=== PATIENT | male | born 1965 | race Caucasian/White ===

== ENCOUNTER 2023-08-02 08:00 | Inpatient (IN) | payer OTHER ==
[2023-08-04 08:40] VITALS: BMI 29.0
[2023-08-05] MEDS ORDERED: LIDOCAINE 1%/EPI 1:100000 (20 ML MULTI DOSE VIAL) ONE ×2 (07:04→10:14)
[2023-08-05] MEDS ORDERED: THROMBIN (BOVINE) 5,000 UNIT VIAL TP ONE ×4 (07:04→11:03)
[2023-08-05] MEDS ORDERED: BACITRACIN ZINC 15 GM TUBE TOPICAL OINTMENT ONE ×2 (07:26→07:27)
[2023-08-05] MEDS ORDERED: ACETAMINOPHEN 500 MG TABLET (FP) PO ONE (07:30)
[2023-08-05] MEDS ORDERED: GABAPENTIN 300 MG CAPSULE PO ONE (07:30)
[2023-08-05] MEDS ORDERED: PROPOFOL 20 ML ONE ×2 (07:40→08:41)
[2023-08-05] MEDS ORDERED: FENTANYL CITRATE/PF 50 MCG/ML VIAL ONE ×8 (07:40→13:52)
[2023-08-05] MEDS ORDERED: MIDAZOLAM HCL 2 MG/2 ML SINGLE DOSE VIAL ONE (07:41)
[2023-08-05] MEDS ORDERED: ROCURONIUM BROMIDE 50 MG/5 ML SYRINGE ONE ×2 (07:41→09:11)
[2023-08-05] MEDS ORDERED: VANCOMYCIN 1,000 MG VIAL (RESTRICTED TO ID ONLY) ONE (07:43)
[2023-08-05] MEDS ORDERED: ceFAZolin SODIUM 1 GM VIAL ONE ×2 (07:43→12:17)
[2023-08-05] MEDS ORDERED: TRANEXAMIC ACID 1000 MG/10 ML VIAL ONE (07:43)
[2023-08-05] MEDS ORDERED: ONDANSETRON 4 MG/2 ML VIAL IVPUSH PRN ×3 (08:24→13:22)
[2023-08-05] MEDS ORDERED: DEXAMETHASONE SOD PHOSPHATE 4 MG/1 ML VIAL IVPUSH PRN (08:24)
[2023-08-05] MEDS ORDERED: PROMETHAZINE HCL 25 MG/1 ML VIAL IVPB PRN ×2 (08:24)
[2023-08-05] MEDS ORDERED: LACTATED RINGERS SOLUTION 1,000 ML IV SCH (08:30)
[2023-08-05] MEDS ORDERED: LIDOCAINE HCL/PF 2% SDV 5ML VIAL ONE (08:34)
[2023-08-05] MEDS ORDERED: ceFAZolin SODIUM 1 GM VIAL IVPB ONE ×2 (08:36→12:16)
[2023-08-05] MEDS ORDERED: VANCOMYCIN 1 GM in D5W (PRE-DOCKED) 1,000 MG/250 ML (RESTRICTED TO ID ONLY IVPB ONE (08:40)
[2023-08-05] MEDS ORDERED: ONDANSETRON 4 MG/2 ML VIAL ONE (08:57)
[2023-08-05] MEDS ORDERED: DEXAMETHASONE SOD PHOSPHATE 4 MG/1 ML VIAL ONE (08:57)
[2023-08-05] MEDS ORDERED: LIDOCAINE 1%/EPI 1:100000 (20 ML MULTI DOSE VIAL) IJ ONE ×2 (08:59→11:03)
[2023-08-05] MEDS ORDERED: GENTAMICIN SO4 80 MG/2 ML VIAL IVPB ONE ×2 (09:18→10:00)
[2023-08-05] MEDS ORDERED: HYDROGEN PEROXIDE 473 ML PO ONE ×2 (09:19→10:00)
[2023-08-05] MEDS ORDERED: BUPIVACAINE HCL/PF 0.5% (5MG/ML) 10 ML VIAL IJ ONE (10:50)
[2023-08-05] MEDS ORDERED: BUPIVACAINE LIPOSOME/PF (EXPAREL) 266 MG/20 ML VIAL NR ONE (10:50)
[2023-08-05] MEDS ORDERED: ACETAMINOPHEN INJECTION 100 ML IVPB ONE (11:09)
[2023-08-05] MEDS ORDERED: SUGAMMADEX SODIUM 200 MG/2 ML VIAL ONE (12:51)
[2023-08-05] MEDS ORDERED: METOPROLOL TARTRATE 5 MG/5 ML VIAL ONE (12:58)
[2023-08-05] MEDS ORDERED: HYDROmorphone *PCA* 10MG/50ML DISP.SYRIN ONE (13:12)
[2023-08-05] MEDS ORDERED: oxyCODONE HCL 5 MG TABLET PO PRN ×2 (13:22)
[2023-08-05] MEDS ORDERED: morphine CARPU-JECT 4 MG/1 ML DISP.SYRIN IVPUSH PRN (13:22)
[2023-08-05] MEDS ORDERED: diphenhydrAMINE HCL 25 MG CAPSULE (FP) PO PRN (13:22)
[2023-08-05] MEDS: HYDROmorphone *PCA* 10MG/50ML DISP.SYRIN PCA SCH (13:24)
[2023-08-05] MEDS: DOCUSATE SODIUM 100 MG CAPSULE (FP) PO SCH ×2 (14:00→22:21)
[2023-08-05] MEDS: LACTATED RINGERS SOLUTION 1,000 ML/1,000 ML INFUS.BAG IV SCH (14:30)
[2023-08-05] MEDS: CEFAZOLIN 1 GM in DEXTROSE 5%-WATER - 50 ML IVPB SCH (18:38)
[2023-08-05] MEDS: HEPARIN NA (PORCINE) 5,000 UNITS/ML 1ML VIAL SQ SCH (22:19)
[2023-08-06] MEDS: HYDROmorphone *PCA* 10MG/50ML DISP.SYRIN PCA SCH ×3 (00:41→20:57)
[2023-08-06] MEDS: CEFAZOLIN 1 GM in DEXTROSE 5%-WATER - 50 ML IVPB SCH ×2 (02:08→09:54)
[2023-08-06] MEDS ORDERED: BENZOCAINE/MENTHOL (CHLORASEPTIC ) LOZENGE MM PRN (05:41)
[2023-08-06] MEDS: HEPARIN NA (PORCINE) 5,000 UNITS/ML 1ML VIAL SQ SCH ×3 (07:04→22:15)
[2023-08-06] MEDS: DOCUSATE SODIUM 100 MG CAPSULE (FP) PO SCH ×3 (07:06→22:15)
[2023-08-06 08:33] LABS: HEMATOCRIT 36.3 % (35.4-49); HEMOGLOBIN 12.6 GM/dL (11.7-16.9); MCH 28.6 pg (25.7-33.7); MCHC 34.6 g/dl (32.0-35.9); MEAN CELL VOLUME 82.7 fl (80-96); MEAN PLT VOLUME 7.4 fl (7.5-11.1); PLATELET COUNT 164 10^3/uL (134-434); RDW 14.3 % (11.9-15.9); WHITE BLOOD COUNT 11.1 K/mm3 (4.0-10.0)
[2023-08-06 08:50] LABS: POTASSIUM 3.6 mmol/L (3.5-5.1)
[2023-08-06 09:02] LABS: CALCIUM 7.7 mg/dL (8.5-10.1)
[2023-08-06 09:03] LABS: MAGNESIUM 1.7 mg/dL (1.8-2.4)
[2023-08-06 09:05] LABS: CREATININE 0.7 mg/dL (0.55-1.3); PHOSPHOROUS 2.9 mg/dL (2.5-4.9)
[2023-08-06] MEDS ORDERED: ceFAZolin SODIUM 1 GM VIAL ONE (09:28)
[2023-08-06] MEDS: FERROUS SO4 325 MG TABLET (FP) PO SCH (09:30)
[2023-08-06] MEDS: FOLIC ACID 1 MG TABLET (FP) PO SCH (09:30)
[2023-08-06] MEDS: MAGNESIUM OXIDE 400 MG TABLET (FP) PO SCH ×2 (10:53→22:14)
[2023-08-06] MEDS: LACTATED RINGERS SOLUTION 1,000 ML/1,000 ML INFUS.BAG IV SCH (14:41)
[2023-08-07] MEDS: DOCUSATE SODIUM 100 MG CAPSULE (FP) PO SCH ×3 (06:31→21:57)
[2023-08-07] MEDS: HEPARIN NA (PORCINE) 5,000 UNITS/ML 1ML VIAL SQ SCH ×3 (06:31→21:57)
[2023-08-07 08:12] LABS: BASO % 0.4 % (0-2.0); EOS % 0.4 % (0-4.5); HEMATOCRIT 36.1 % (35.4-49); HEMOGLOBIN 12.3 GM/dL (11.7-16.9); LYMPH % 8.9 % (8-40); MCH 28.3 pg (25.7-33.7); MEAN CELL VOLUME 83.2 fl (80-96); MEAN PLT VOLUME 7.5 fl (7.5-11.1); MONO % 9.7 % (3.8-10.2); NEUT % 80.6 % (42.8-82.8); PLATELET COUNT 151 10^3/uL (134-434); RBC 4.34 M/mm3 (4.00-5.60); RDW 14.2 % (11.9-15.9); WHITE BLOOD COUNT 9.5 K/mm3 (4.0-10.0)
[2023-08-07] MEDS: FERROUS SO4 325 MG TABLET (FP) PO SCH ×2 (08:39→10:04)
[2023-08-07 08:58] LABS: MAGNESIUM 2.2 mg/dL (1.8-2.4)
[2023-08-07 08:59] LABS: BLOOD UREA NITROGEN 6.8 mg/dL (7-18)
[2023-08-07 09:01] LABS: CREATININE 0.6 mg/dL (0.55-1.3)
[2023-08-07 09:03] LABS: TOT PROT 5.4 g/dl (6.4-8.2)
[2023-08-07] MEDS ORDERED: BENZOCAINE/MENTH/CETYLPYRD CL 1 EACH LOZENGE MM PRN (09:24)
[2023-08-07] MEDS: FOLIC ACID 1 MG TABLET (FP) PO SCH (10:05)
[2023-08-07] MEDS: HYDROmorphone *PCA* 10MG/50ML DISP.SYRIN PCA SCH (10:06)
[2023-08-07] MEDS: FERROUS SO4 300 MG/5 ML ORAL SOLN UNIT DOSE CUPS PO SCH (10:07)
[2023-08-07] MEDS ORDERED: PHENOL 177 ML SPRAY BOTTLE MM PRN (10:08)
[2023-08-07] MEDS: ACETAMINOPHEN 1000 MG/100 ML BAG IVPB PRN (15:47)
[2023-08-07] MEDS: DEXTROSE 5%-0.45% SALINE 1,000 ML IV SCH (15:52)
[2023-08-07 23:19] VITALS: RESP 18
[2023-08-08] MEDS: DEXTROSE 5%-0.45% SALINE 1,000 ML IV SCH (04:34)
[2023-08-08] MEDS: ACETAMINOPHEN 1000 MG/100 ML BAG IVPB PRN (04:35)
[2023-08-08] MEDS: DOCUSATE SODIUM 100 MG CAPSULE (FP) PO SCH (06:04)
[2023-08-08] MEDS: HEPARIN NA (PORCINE) 5,000 UNITS/ML 1ML VIAL SQ SCH (06:05)
[2023-08-08] MEDS ORDERED: oxyCODONE HCL 5 MG TABLET PO PRN ×2 (07:48)
[2023-08-08] MEDS ORDERED: DEXAMETHASONE SOD PHOSPHATE 10 MG/1 ML VIAL IVPUSH ONE (09:00)
[2023-08-08] MEDS ORDERED: PANTOPRAZOLE 40 MG TABLET PO SCH (10:00)
[2023-08-08] MEDS ORDERED: POLYETHYLENE GLYCOL (HEALTHYLAX) 3350 17 GM PACKET PO SCH (10:00)
[2023-08-08 10:09] LABS: POTASSIUM 3.7 mmol/L (3.5-5.1)
[2023-08-08 10:19] LABS: ALBUMIN 2.8 g/dl (3.4-5.0); BLOOD UREA NITROGEN 5.6 mg/dL (7-18); CALCIUM 8.5 mg/dL (8.5-10.1); MAGNESIUM 2.2 mg/dL (1.8-2.4)
[2023-08-08 10:22] LABS: CREATININE 0.6 mg/dL (0.55-1.3)
[2023-08-08 10:23] LABS: BILIRUBIN,TOTAL 0.9 mg/dL (0.2-1); TOT PROT 5.7 g/dl (6.4-8.2)
[2023-08-08] MEDS: FERROUS SO4 300 MG/5 ML ORAL SOLN UNIT DOSE CUPS PO SCH (10:28)
[2023-08-08] MEDS: FOLIC ACID 1 MG TABLET (FP) PO SCH (10:28)
[2023-08-08 10:36] LABS: BASO % 0.2 % (0-2.0); EOS % 0.6 % (0-4.5); HEMATOCRIT 36.3 % (35.4-49); HEMOGLOBIN 12.6 GM/dL (11.7-16.9); LYMPH % 9.5 % (8-40); MCH 28.6 pg (25.7-33.7); MCHC 34.7 g/dl (32.0-35.9); MEAN CELL VOLUME 82.4 fl (80-96); MEAN PLT VOLUME 7.9 fl (7.5-11.1); MONO % 6.3 % (3.8-10.2); NEUT % 83.4 % (42.8-82.8); PLATELET COUNT 167 10^3/uL (134-434); RBC 4.41 M/mm3 (4.00-5.60); RDW 13.9 % (11.9-15.9); WHITE BLOOD COUNT 8.6 K/mm3 (4.0-10.0)
[2023-08-08 11:52] VITALS: BP 130/84; PULSE 88; TEMP 98.2
[2023-08-08] MEDS ORDERED: MELATONIN 5 MG TABLETS PO SCH (22:00)
== END 2023-08-08 12:28 | disposition home or self-care (01) | DRG 455 ==
LOC: J2C 08-05 05:21 → J8W 08-05 15:11
PROVIDERS: ADMIT Neurological Surgery; ATTEND Nurse Practitioner Acute Care
PROC: 0RG2071 Fusion of 2 or more Cervical Vertebral Joints with Autologous Tissue Substitute, Posterior Approach, Posterior Column, Open Approach (ICD-10-PCS; 2023-08-05)
PROC: 0RB30ZZ Excision of Cervical Vertebral Disc, Open Approach (ICD-10-PCS; 2023-08-05)
PROC: 00NW0ZZ Release Cervical Spinal Cord, Open Approach (ICD-10-PCS; 2023-08-05)
PROC: 4A1004G Monitoring of Central Nervous Electrical Activity, Intraoperative, Open Approach (ICD-10-PCS; 2023-08-05)
PROC: 0RG20AJ Fusion of 2 or more Cervical Vertebral Joints with Interbody Fusion Device, Posterior Approach, Anterior Column, Open Approach (ICD-10-PCS; principal; 2023-08-05 08:00)
DX: M47.12 Other spondylosis with myelopathy, cervical region (principal); M40.292 Other kyphosis, cervical region; E78.5 Hyperlipidemia, unspecified
CPT/HCPCS: 36415; 72125-TC; 76000-TC-FY; 80048; 80053; 83735; 84100; 85025; 85027; 86850; 86900; 86901; 94760; 97116-GP; C1713; C1889; J1100; J1644

== ENCOUNTER 2023-11-29 03:59 | Inpatient (IN) | payer OTHER ==
[2023-11-24 09:56] VITALS: BMI 29.0
[2023-11-29 10:55] LABS: PH,URINE 8.5 (5.0-8.0); URINE APPEARANCE CLEAR; URINE BILIRUBIN NEGATIVE (NEGATIVE); URINE COLOR YELLOW; URINE GLUCOSE (UA) NEGATIVE (NEGATIVE); URINE KETONE NEGATIVE (NEGATIVE); URINE LEUK ESTERASE NEGATIVE (NEGATIVE); URINE NITRITE NEGATIVE (NEGATIVE); URINE PROTEIN NEGATIVE (NEGATIVE); URINE UROBILINOGEN 0.2 mg/dL (0.2-1.0)
[2023-11-29] MEDS ORDERED: PROPOFOL 20 ML ONE (11:37)
[2023-11-29] MEDS ORDERED: MIDAZOLAM HCL 2 MG/2 ML SINGLE DOSE VIAL ONE (11:38)
[2023-11-29] MEDS ORDERED: ROCURONIUM BROMIDE 50 MG/5 ML SYRINGE ONE ×4 (11:38→15:10)
[2023-11-29] MEDS ORDERED: GENTAMICIN SO4 80 MG/2 ML VIAL ONE (12:23)
[2023-11-29] MEDS ORDERED: VANCOMYCIN 1,000 MG VIAL (RESTRICTED TO ID ONLY) ONE (12:23)
[2023-11-29] MEDS ORDERED: THROMBIN (BOVINE) 5,000 UNIT VIAL TP ONE (12:23)
[2023-11-29] MEDS ORDERED: BUPIVACAINE HCL/PF 0.5% (5MG/ML) 10 ML VIAL ONE ×2 (12:24→12:29)
[2023-11-29] MEDS ORDERED: BUPIVACAINE LIPOSOME/PF (EXPAREL) 266 MG/20 ML VIAL ONE (12:24)
[2023-11-29] MEDS: VANCOMYCIN 1,000 MG VIAL (RESTRICTED TO ID ONLY) IVPB ONE ×2 (13:41)
[2023-11-29] MEDS: LIDOCAINE 1%/EPI 1:100000 (20 ML MULTI DOSE VIAL) IJ ONE (13:45)
[2023-11-29] MEDS: ceFAZolin SODIUM 1 GM VIAL IVPB ONE ×3 (13:45→16:36)
[2023-11-29] MEDS ORDERED: SUGAMMADEX SODIUM 200 MG/2 ML VIAL ONE (14:12)
[2023-11-29] MEDS ORDERED: ONDANSETRON 4 MG/2 ML VIAL ONE (14:26)
[2023-11-29] MEDS ORDERED: DEXAMETHASONE SOD PHOSPHATE 4 MG/1 ML VIAL ONE (14:26)
[2023-11-29] MEDS: THROMBIN (BOVINE) 5,000 UNIT VIAL TP ONE (15:16)
[2023-11-29] MEDS: GENTAMICIN SO4 80 MG/2 ML VIAL IVPB ONE ×2 (15:18→15:46)
[2023-11-29] MEDS: HYDROGEN PEROXIDE 473 ML PO ONE ×2 (15:18→15:46)
[2023-11-29] MEDS: VANCOMYCIN 1 GM in D5W (PRE-DOCKED) 1,000 MG/250 ML (RESTRICTED TO ID ONLY IVPB ONE (16:33)
[2023-11-29] MEDS: BUPIVACAINE LIPOSOME/PF (EXPAREL) 266 MG/20 ML VIAL NR ONE (17:34)
[2023-11-29] MEDS: BUPIVACAINE HCL/PF 0.5% (5MG/ML) 10 ML VIAL IJ ONE (17:34)
[2023-11-29] MEDS ORDERED: HYDROmorphone HCl 2 MG/ML VIAL ONE (17:37)
[2023-11-29] MEDS ORDERED: ONDANSETRON 4 MG/2 ML VIAL IVPUSH PRN (18:43)
[2023-11-29] MEDS ORDERED: PROMETHAZINE HCL 25 MG/1 ML VIAL IVPB PRN (18:43)
[2023-11-29] MEDS ORDERED: NEOSTIGMINE METHYLSULFATE 0.5 MG/1 ML - 10 ML MDV ONE (18:48)
[2023-11-29] MEDS ORDERED: ESMOLOL HCL 100,000 MCG/10 ML VIAL ONE (18:49)
[2023-11-29] MEDS ORDERED: GLYCOPYRROLATE 0.2 MG/1 ML VIAL ONE (18:49)
[2023-11-29] MEDS ORDERED: HYDROmorphone HCl 2 MG/ML VIAL IVPUSH PRN (20:03)
[2023-11-29] MEDS: ACETAMINOPHEN 1000 MG/100 ML BAG IVPB ONE (20:05)
[2023-11-29] MEDS ORDERED: ACETAMINOPHEN INJECTION 100 ML IVPB ONE (20:06)
[2023-11-29 20:39] LABS: HEMATOCRIT 32.9 % (35.4-49); HEMOGLOBIN 11.4 GM/dL (11.7-16.9); MCH 29.2 pg (25.7-33.7); MCHC 34.6 g/dl (32.0-35.9); MEAN CELL VOLUME 84.4 fl (80-96); MEAN PLT VOLUME 7.4 fl (7.5-11.1); PLATELET COUNT 281 10^3/uL (134-434); RDW 13.2 % (11.9-15.9); WHITE BLOOD COUNT 12.9 K/mm3 (4.0-10.0)
[2023-11-29] MEDS: LACTATED RINGERS SOLUTION 1,000 ML IV SCH (21:05)
[2023-11-29] MEDS ORDERED: oxyCODONE HCL 5 MG TABLET PO PRN ×2 (21:06)
[2023-11-29] MEDS: ACETAMINOPHEN 1000 MG/100 ML BAG IVPB SCH (21:17)
[2023-11-29] MEDS: diazePAM CARPU-JECT 10 MG/2 ML DISP.SYRIN IVPUSH ONE (21:18)
[2023-11-29] MEDS: HYDROmorphone *PCA* 10MG/50ML DISP.SYRIN PCA SCH (21:34)
[2023-11-29] MEDS: DOCUSATE SODIUM 100 MG CAPSULE (FP) PO SCH (23:24)
[2023-11-30] MEDS: LACTATED RINGERS SOLUTION 1,000 ML/1,000 ML INFUS.BAG IV SCH (00:26)
[2023-11-30 00:30] LABS: HEMATOCRIT 32.7 % (35.4-49); HEMOGLOBIN 11.1 GM/dL (11.7-16.9); MCH 29.1 pg (25.7-33.7); MEAN CELL VOLUME 85.5 fl (80-96); MEAN PLT VOLUME 7.4 fl (7.5-11.1); PLATELET COUNT 221 10^3/uL (134-434); RBC 3.83 M/mm3 (4.00-5.60); RDW 13.5 % (11.9-15.9); WHITE BLOOD COUNT 14.7 K/mm3 (4.0-10.0)
[2023-11-30 00:49] LABS: POTASSIUM 5.1 mmol/L (3.5-5.1)
[2023-11-30 00:52] LABS: ALBUMIN 2.7 g/dl (3.4-5.0); BLOOD UREA NITROGEN 15.9 mg/dL (7-18); MAGNESIUM 1.6 mg/dL (1.8-2.4)
[2023-11-30 00:55] LABS: CREATININE 1.2 mg/dL (0.55-1.3)
[2023-11-30 00:56] LABS: TOT PROT 4.9 g/dl (6.4-8.2)
[2023-11-30 00:57] LABS: BILIRUBIN,TOTAL 0.5 mg/dL (0.2-1)
[2023-11-30] MEDS: CEFAZOLIN SODIUM 2 GM in DEXTROSE 5%-WATER 100 ML IVPB SCH (02:45)
[2023-11-30] MEDS: MAGNESIUM 2GM/50ML STERILE WATER IVPB IVPB ONE (04:54)
[2023-11-30 06:40] LABS: HEMATOCRIT 29.6 % (35.4-49); MCH 28.9 pg (25.7-33.7); MCHC 33.9 g/dl (32.0-35.9); MEAN CELL VOLUME 85.3 fl (80-96); MEAN PLT VOLUME 7.5 fl (7.5-11.1); PLATELET COUNT 215 10^3/uL (134-434); RBC 3.47 M/mm3 (4.00-5.60); RDW 13.2 % (11.9-15.9); WHITE BLOOD COUNT 15.9 K/mm3 (4.0-10.0)
[2023-11-30] MEDS: FOLIC ACID 1 MG TABLET (FP) PO SCH (10:11)
[2023-11-30] MEDS: FERROUS SO4 325 MG TABLET (FP) PO SCH (10:12)
[2023-11-30] MEDS: HEPARIN NA (PORCINE) 5,000 UNITS/ML 1ML VIAL SQ SCH (10:13)
[2023-11-30] MEDS: ONDANSETRON 4 MG/2 ML VIAL IVPUSH PRN (16:08)
[2023-11-30] MEDS ORDERED: chlorproMAZINE HCL 25 MG TABLET PO PRN (16:46)
[2023-12-01 06:37] LABS: POTASSIUM 3.9 mmol/L (3.5-5.1)
[2023-12-01 06:40] LABS: CALCIUM 7.6 mg/dL (8.5-10.1)
[2023-12-01 06:41] LABS: BLOOD UREA NITROGEN 8.1 mg/dL (7-18); MAGNESIUM 1.5 mg/dL (1.8-2.4)
[2023-12-01 06:44] LABS: CREATININE 0.7 mg/dL (0.55-1.3)
[2023-12-01] MEDS: ACETAMINOPHEN 500 MG TABLET (FP) PO SCH (06:59)
[2023-12-01 07:39] LABS: HEMATOCRIT 24.9 % (35.4-49); MCH 30.2 pg (25.7-33.7); MCHC 36.4 g/dl (32.0-35.9); MEAN CELL VOLUME 83.1 fl (80-96); MEAN PLT VOLUME 7.8 fl (7.5-11.1); PLATELET COUNT 137 10^3/uL (134-434); RBC 2.99 M/mm3 (4.00-5.60); RDW 13.3 % (11.9-15.9); WHITE BLOOD COUNT 9.2 K/mm3 (4.0-10.0)
[2023-12-01] MEDS: HYDROmorphone *PCA* 10MG/50ML DISP.SYRIN PCA SCH (12:05)
[2023-12-01] MEDS: MAGNESIUM HYDROX 2400MG/30ML ORAL SUSPENSION 30 ML CUP PO SCH (17:48)
[2023-12-02 06:47] LABS: BASO % 0.3 % (0-2.0); EOS % 0.7 % (0-4.5); HEMATOCRIT 23.6 % (35.4-49); HEMOGLOBIN 8.3 GM/dL (11.7-16.9); LYMPH % 8.7 % (8-40); MCH 29.5 pg (25.7-33.7); MEAN CELL VOLUME 84.3 fl (80-96); MEAN PLT VOLUME 7.8 fl (7.5-11.1); MONO % 9.3 % (3.8-10.2); PLATELET COUNT 126 10^3/uL (134-434); RDW 13.4 % (11.9-15.9); WHITE BLOOD COUNT 9.7 K/mm3 (4.0-10.0)
[2023-12-02 07:01] LABS: BLOOD UREA NITROGEN 8.1 mg/dL (7-18); CALCIUM 7.6 mg/dL (8.5-10.1)
[2023-12-02 07:05] LABS: CREATININE 0.5 mg/dL (0.55-1.3)
[2023-12-02] MEDS: morphine SULFATE 4 MG/ML VIAL IVPUSH PRN (10:33)
[2023-12-02] MEDS: oxyCODONE HCL 5 MG TABLET PO PRN ×2 (14:09→18:03)
[2023-12-03] MEDS: CYCLOBENZAPRINE HCL 5 MG TABLET PO PRN (03:52)
[2023-12-03] MEDS: ACETAMINOPHEN 325 MG TABLET (FP) PO PRN (05:55)
[2023-12-03 08:16] LABS: BLOOD UREA NITROGEN 6.2 mg/dL (7-18)
[2023-12-03 08:19] LABS: CALCIUM 8.3 mg/dL (8.5-10.1); CREATININE 0.5 mg/dL (0.55-1.3)
[2023-12-03 08:20] LABS: BILIRUBIN,TOTAL 0.3 mg/dL (0.2-1); TOT PROT 4.7 g/dl (6.4-8.2)
[2023-12-03 08:22] LABS: ALBUMIN 2.2 g/dl (3.4-5.0)
[2023-12-03 09:17] LABS: HEMATOCRIT 22.1 % (35.4-49); HEMOGLOBIN 7.6 GM/dL (11.7-16.9); MCH 29.3 pg (25.7-33.7); MCHC 34.6 g/dl (32.0-35.9); MEAN CELL VOLUME 84.8 fl (80-96); MEAN PLT VOLUME 7.8 fl (7.5-11.1); PLATELET COUNT 131 10^3/uL (134-434); RBC 2.61 M/mm3 (4.00-5.60); RDW 13.6 % (11.9-15.9); WHITE BLOOD COUNT 7.5 K/mm3 (4.0-10.0)
[2023-12-03] MEDS: ENOXAPARIN NA (PORCINE) 40 MG/0.4 ML DISP.SYRIN SQ SCH (09:52)
[2023-12-03 16:31] LABS: BASO % 0.6 % (0-2.0); EOS % 3.9 % (0-4.5); HEMATOCRIT 23.7 % (35.4-49); HEMOGLOBIN 8.3 GM/dL (11.7-16.9); LYMPH % 21.6 % (8-40); MCH 29.5 pg (25.7-33.7); MCHC 34.9 g/dl (32.0-35.9); MEAN CELL VOLUME 84.5 fl (80-96); MEAN PLT VOLUME 7.3 fl (7.5-11.1); MONO % 8.1 % (3.8-10.2); NEUT % 65.8 % (42.8-82.8); PLATELET COUNT 168 10^3/uL (134-434); RBC 2.81 M/mm3 (4.00-5.60); RDW 13.6 % (11.9-15.9); WHITE BLOOD COUNT 7.4 K/mm3 (4.0-10.0)
[2023-12-03] MEDS: morphine SULFATE 4 MG/ML VIAL IVPUSH ONE (20:39)
[2023-12-04] MEDS: diphenhydrAMINE HCL 25 MG CAPSULE (FP) PO PRN (00:09)
[2023-12-04] MEDS: morphine SULFATE 4 MG/ML VIAL IVPUSH PRN (01:22)
[2023-12-04] MEDS: ACETAMINOPHEN 500 MG TABLET (FP) PO SCH (08:44)
[2023-12-04] MEDS: CYCLOBENZAPRINE HCL 5 MG TABLET PO SCH (08:46)
[2023-12-04] MEDS: POLYETHYLENE GLYCOL (HEALTHYLAX) 3350 17 GM PACKET PO SCH (13:22)
[2023-12-04] MEDS: oxyCODONE HCL 5 MG TABLET PO PRN (15:50)
[2023-12-05 09:13] LABS: HEMATOCRIT 24.6 % (35.4-49); HEMOGLOBIN 8.6 GM/dL (11.7-16.9); MCH 29.5 pg (25.7-33.7); MCHC 35.1 g/dl (32.0-35.9); MEAN PLT VOLUME 7.1 fl (7.5-11.1); PLATELET COUNT 197 10^3/uL (134-434); RBC 2.93 M/mm3 (4.00-5.60); RDW 13.4 % (11.9-15.9); WHITE BLOOD COUNT 5.9 K/mm3 (4.0-10.0)
[2023-12-05 09:21] LABS: POTASSIUM 4.4 mmol/L (3.5-5.1)
[2023-12-05 09:29] LABS: CALCIUM 8.7 mg/dL (8.5-10.1); MAGNESIUM 2.3 mg/dL (1.8-2.4)
[2023-12-05 09:30] LABS: BLOOD UREA NITROGEN 10.9 mg/dL (7-18)
[2023-12-05 09:33] LABS: CREATININE 0.7 mg/dL (0.55-1.3); PHOSPHOROUS 3.8 mg/dL (2.5-4.9)
[2023-12-05 13:48] VITALS: BP 127/71; PULSE 108; RESP 19; TEMP 99.8
== END 2023-12-05 11:45 | disposition home or self-care (01) | DRG 304 ==
LOC: J2C 03:59 → J4W 23:08
PROVIDERS: ADMIT Neurological Surgery; ATTEND Internal Medicine
PROC: 0SG10K1 Fusion of 2 or more Lumbar Vertebral Joints with Nonautologous Tissue Substitute, Posterior Approach, Posterior Column, Open Approach (ICD-10-PCS; 2023-11-29)
PROC: 0SB20ZZ Excision of Lumbar Vertebral Disc, Open Approach (ICD-10-PCS; 2023-11-29)
PROC: 0SP00AZ Removal of Interbody Fusion Device from Lumbar Vertebral Joint, Open Approach (ICD-10-PCS; 2023-11-29)
PROC: 0SG30K1 Fusion of Lumbosacral Joint with Nonautologous Tissue Substitute, Posterior Approach, Posterior Column, Open Approach (ICD-10-PCS; 2023-11-29)
PROC: 0SP30AZ Removal of Interbody Fusion Device from Lumbosacral Joint, Open Approach (ICD-10-PCS; 2023-11-29)
PROC: 4A11X4G Monitoring of Peripheral Nervous Electrical Activity, Intraoperative, External Approach (ICD-10-PCS; 2023-11-29)
PROC: 0SG10AJ Fusion of 2 or more Lumbar Vertebral Joints with Interbody Fusion Device, Posterior Approach, Anterior Column, Open Approach (ICD-10-PCS; principal; 2023-11-29 12:00)
DX: M47.816 Spondylosis without myelopathy or radiculopathy, lumbar region (principal); M48.061 Spinal stenosis, lumbar region without neurogenic claudication; E78.00 Pure hypercholesterolemia, unspecified; R33.9 Retention of urine, unspecified; R52 Pain, unspecified; Z98.1 Arthrodesis status
CPT/HCPCS: 36415; 72131-TC; 76000-TC-FY; 80048; 80053; 80061; 81003; 83735; 84100; 85025; 85027; 86922; 93005; 93010; 94760; 97116-GP; 97162-GP; C1713; C1889; J0131; J1644